=== PATIENT | male | born 1965 | race Caucasian/White ===

== ENCOUNTER 2024-02-15 15:16 | Emergency (ER) | payer MEDICAID ==
[~2024-02-15] VITALS: Ht 170.2 cm; Wt 105.2 kg
[2024-02-15 15:33] VITALS: TEMP 98.3
[2024-02-15] MEDS ORDERED: CLIN-214 PO (17:29)
[2024-02-15 17:43] VITALS: BP 156/96; PULSE 82; RESP 18; O2SAT 97
[2024-02-15] MEDS: clindamycin 150mg capsule PO ONE (17:45)
== END 2024-02-15 17:30 | disposition home or self-care (01) ==
LOC: ER 15:17
DX: L84 Corns and callosities (principal); M79.672 Pain in left foot; Z96.642 Presence of left artificial hip joint
CPT/HCPCS: 73630; 93971; 99284

== ENCOUNTER 2024-08-31 13:36 | Emergency (ER) | payer MEDICARE, MEDICAID ==
[~2024-08-31] VITALS: Ht 172.7 cm; Wt 93.3 kg
[~2024-08-31 13:36] MED LIST: CLIN-214 PO
[2024-08-31 13:50] VITALS: TEMP 97.8
[2024-08-31 14:31] VITALS: BP 145/85; PULSE 72; RESP 15; O2SAT 96
--- NOTE | 2024-08-31 14:36 | RADIOLOGY REPORT ---
EXAM: DI CHEST,SINGLE VIEW HISTORY: CP COMPARISON: None TECHNIQUE: Portable AP view of the chest was performed. FINDINGS: No pneumothorax, consolidative infiltrates, or pulmonary edema. The heart is not enlarged. There are chronic appearing fractures of the bilateral ribs, more numerous on the right. There is moderate thor acic degenerative disc disease. IMPRESSION: No acute intrathoracic process.
--- NOTE | 2024-08-31 14:38 | ELECTROCARDIOGRAPH REPORT ---
[facility] Test Date: 2024-08-31 Test Time: 14:37:08 Pat Name: MAL GONZALEZ Department: [facility] Patient ID: [facility]-[id number] Room: Gender: M [employer] Member: : 1965 Requested By: CRISS BARRETT Order Number: [id number] Reading MD: Measurements Intervals [place] Rate: 84 P: 66 ID: [id number] QRS: 80 QRSD: 116 T: 59 QT: 397 QTc: 470 Interpretive Statements Sinus rhythm Incomplete right bundle branch block Please click the below link to view image of tracing.
[2024-08-31 14:52] LABS: MEAN PLATELET VOLUME 6.4 FL (7.4-10.4); RED CELL DISTRIBUTION WIDTH 13.8 % (11.5-14.5)
[2024-08-31 15:16] LABS: CREATININE 1.01 MG/DL (0.60-1.10); PRO BRAIN NATRIURETIC PEPTIDE 175 PG/ML (0-125); TOTAL CARBON DIOXIDE 27.9 MMOL/L (24-32); eCRCL 75 ML/MIN; eGFR 75 ML/MIN
[2024-08-31] MEDS ORDERED: CEPH-585 PO (17:14)
[2024-08-31] MEDS ORDERED: FURO-150 PO (17:14)
--- NOTE | 2024-08-31 17:15 | Physician Documentation ---
History of Present Illness ~ Chief Complaint: Leg Pain Stated Complaint: L LEG PAIN Time Seen by MD: 17:08 HPI Patient is seen today with complaints of redness and swelling of his left lower extremity. Patient admits to periodic cellulitis in his legs last occurrence being about a year ago. Patient denies any fevers or chills and patient has no other concern or complaint at this time. Patient denies any chest pain or shortness of breath or abdominal pain or nausea, vomiting, diarrhea. Medication Reconciliation Allergies: Coded Allergies: No Known Allergies (Unverified , 10/26/13) Scheduled Clindamycin HCl (Clindamycin HCl CAPSULE), 1 CAP PO BID Review of Systems Constitutional: Denies: chills, fever, weakness Eyes: Denies: pain, blurred vision ENT: Denies: ear pain, nose pain, throat pain, mouth pain Respiratory: Denies: cough, shortness of breath Cardiovascular: Denies: chest pain, palpitations Gastrointestinal: Denies: abdominal pain, nausea, vomiting Genitourinary: Denies: burning, dysuria Male Genitalia: Denies: penile discharge, testicular pain Neurological: Denies: headache, dizziness Musculoskeletal: Denies: pain, swelling Integumentary: Denies: rash, lesions Allergic/Immunologic: Denies: hives, itching Hematologic/Lymphatic: Denies: no symptoms reported Psychiatric: Denies: depression, anxiety Physical Exam Vital Signs: Temperature: 97.8, Source: Temporal, Heart Rate: 72, Respiratory Rate: 15, BP: 145/85, Pulse Oximetry: 96, Weight: 93.300 Physical Exam General: Awake and Alert, no acute distress. HEENT: Conjunctiva pink, Sclera clear, Mucus Membranes moist. Neck: Supple without masses and tenderness. Resp: Unlabored. Lungs clear to auscultation bilaterally. Heart: Regular Rate and rhythm, normal S1 and S2 without murmur, rub or gallop. Extremities: On exam patient does have some erythema and warmth of the left lower extremity with 2+ pitting edema of bilateral lower extremities worse on the left side. Skin: Warm and Dry. Progress Results/Orders Results/Orders Orders - CRISS BARRETT PAC Chest,Single View (08/31/24 14:15) Monitor (08/31/24 14:15) Saline Lock (08/31/24 14:15) Oxygen (08/31/24 14:15) Completed Orders - CRISS BARRETT PAC Chest,Single View (08/31/24 14:15) Cbc/Diff (08/31/24 14:15) BMP (08/31/24 14:15) PBNP (08/31/24 14:15) Electrocardiogram (08/31/24 14:15) Hs Troponin I W Calculations (08/31/24 14:15) Vital Signs 08/31/24 08/31/24 13:50 14:31 Temp 97.8 Pulse 92 72 Resp 18 15 B/P (MAP) 163/91 145/85 (105) Pulse Ox 99 96 Laboratory Tests Test 08/31/24 14:34 White Blood Count 7.3 Red Blood Count 4.04 L Hemoglobin 11.8 L Hematocrit 34.6 L Mean Corpuscular Volume 85.8 Mean Corpuscular Hemoglobin 29.3 Mean Corpuscular Hemoglobin Concent 34.2 Red Cell Distribution Width 13.8 Platelet Count 448 H Mean Platelet Volume 6.4 L Neutrophils (%) (Auto) 63.1 Lymphocytes (%) (Auto) 25.3 Monocytes (%) (Auto) 9.8 Eosinophils (%) (Auto) 1.5 Basophils (%) (Auto) 0.3 Neutrophils # (Auto) 4.6 Lymphocytes # (Auto) 1.8 Monocytes # (Auto) 0.7 Eosinophils # (Auto) 0.1 Basophils # (Auto) 0.0 CBC Comment Sodium Level 140 Potassium Level 3.8 Chloride Level 106 Carbon Dioxide Level 27.9 Anion Gap 6 L Blood Urea Nitrogen 10 Creatinine 1.01 Estimated GFR/1.73 m2 75 BUN/Creatinine Ratio 9.9 L Glucose Level 93 Calcium Level 8.6 Troponin I High Sensitivity 9 Pro-B-Type Natriuretic Peptide 175 H Albumin 2.9 L Chemistry Comments EKG/XRAY/CT/US/VASC/MRI EKG : Additional Comment EKG interpreted by myself today shows normal sinus rhythm with regular rate at 84 beats per minute, no sign of ST segment elevation or ischemia and no axis deviation. There is sign of incomplete right bundle branch block. Chest X-Ray : Additional Comments Chest x-ray interpreted by myself today shows no sign of large infiltrate, no large effusion, normal mediastinum. DIAGNOSTIC RADIOLOGY Patient: MAL GONZALEZ Medical Record: [id number] JOSEPH BEREA : 1965, Age: 59 Sex: Male Location: ER Patient Status: [facility] ER Service Date/Time: 08/31/24/ 1415 Ordering Physician: CRISS BARRETT PAC Exam: CHEST,SINGLE VIEW EXAM: DI CHEST,SINGLE VIEW HISTORY: CP COMPARISON: None TECHNIQUE: Portable AP view of the chest was performed. FINDINGS: No pneumothorax, consolidative infiltrates, or pulmonary edema. The heart is not enlarged. There are chronic appearing fractures of the bilateral ribs, more numerous on the right. There is moderate thoracic degenerative disc disease. IMPRESSION: No acute intrathoracic process. Electronically Signed by:MANUEL REID MD Date & Time: 08/31/24 1433 Dictated by: MANUEL REID MD Dictation date and time: 08/31/24 1420 Primary Care Provider: NO PRIMARY CARE PROVIDER cc: CRISS BARRETT PAC ~ Medical Decision Making Findings Patient is seen today with complaints of redness and swelling of his left lower extremity. Patient admits to periodic cellulitis in his legs last occurrence being about a year ago. Patient denies any fevers or chills and patient has no other concern or complaint at this time. Patient denies any chest pain or shortness of breath or abdominal pain or nausea, vomiting, diarrhea. Prescription of Keflex sent to patient's pharmacy. As well as Lasix 20 mg to be taken once a day by mouth. Patient eloped prior to explanation of the plan. Patient will follow up with primary care in 2-5 days if no better as needed sooner. Return to ED with any worsening, concerning or changing symptoms. Departure Disposition: LEFT AWOL/ELOPED Impression: Primary Impression: Cellulitis Qualified Codes: L03.116 - Cellulitis of left lower limb Condition: Stable Discharge Instructions: Cellulitis, Adult, [id number] Additional Instructions: Prescription of Keflex sent to patient's pharmacy. As well as Lasix 20 mg to be taken once a day by mouth. Patient eloped prior to explanation of the plan. Patient will follow up with primary care in 2-5 days if no better as needed sooner. Return to ED with any worsening, concerning or changing symptoms. Referrals: NO PRIMARY CARE PROVIDER (PCP) Prescriptions Furosemide (LASIX) 20 Mg Tablet 1 TAB PO DAILY for 14 Days, #14 TAB 0 Refills Prov: CRISS BARRETT 08/31/24 Cephalexin*Monohydrate* (Keflex*) 500 Mg Capsule 1 CAP PO Q8H for 10 Days, #30 CAP Prov: CRISS BARRETT 08/31/24 Signature Scribe Signature: No scribe Attestation: No scribe CRISS BARRETT Aug 31, 2024 17:15
== END 2024-08-31 16:41 | disposition left against medical advice (07) ==
LOC: ER 13:37
DX: L03.115 Cellulitis of right lower limb (principal); L03.116 Cellulitis of left lower limb; R06.02 Shortness of breath
CPT/HCPCS: 36415; 71045; 80048; 83880; 84484; 85025; 93005; 99285